=== PATIENT | female | born 1950 | race Caucasian/White ===

== ENCOUNTER 2017-07-25 07:27 | Emergency (ER) | payer MEDICARE, OTHER ==
[2017-07-25] MEDS ORDERED: Lidocaine 1% (PF) 30 ML VIAL ONE (08:15)
--- NOTE | 2017-07-25 08:43 | RAD ---
RIGHT WRIST 3 VIEWS: Date: 07/25/17 HISTORY: Injury. Pain. Fall. FINDINGS: Diffuse bone demineralization. Impacted and slightly comminuted distal radius fracture. There is dors al angulation. Fracture lucency extends to the articular surface. Ulnar styloid fracture is identifie d. With regard to the carpal bones, there is mild widening of the scapholunate joint space. Fractures ar e not appreciated. IMPRESSION: Post-traumatic changes as above. POS: [facility]
--- NOTE | 2017-07-25 10:25 | RAD ---
3 VIEWS RIGHT WRIST: Date: 07/25/17 HISTORY: Fracture and dislocation. COMPARISON: 07/25/17. FINDINGS: Interval placement of a fiberglass splint. Evaluation for fine bony detail is limited. Fractures are redemonstrated. There is still evidence of mild dorsal angulation. IMPRESSION: Interval reduction. Persistent posterior dislocation. POS: [facility]
== END 2017-07-25 09:55 | disposition home or self-care (01) ==
LOC: ERS 07:27
DX: S52.501A Unspecified fracture of the lower end of right radius, initial encounter for closed fracture (principal); S52.611A Displaced fracture of right ulna styloid process, initial encounter for closed fracture; J44.9 Chronic obstructive pulmonary disease, unspecified; M41.9 Scoliosis, unspecified; W01.0XXA Fall on same level from slipping, tripping and stumbling without subsequent striking against object, initial encounter; Y92.000 Kitchen of unspecified non-institutional (private) residence as the place of occurrence of the external cause
CPT/HCPCS: 25605; J2001

== ENCOUNTER 2017-07-29 14:37 | Outpatient (CLI) | payer MEDICARE ==
[2017-07-29 16:21] LABS: #Eosinphils 0.1 thou/uL (0.0-0.7); #Lymphocytes 1.4 thou/uL (1.20-3.40); #Monocytes 0.5 thou/uL (0.11-0.59); %Basophils 0.8 % (0.0-1.0); %Eosinophils 2.6 % (0.0-10.0); %Lymphocytes 27.4 % (21.0-51.0); %Monocytes 10.3 % (0.0-10.0); Hematocrit 39.5 % (36.0-47.0); Mean Platelet Volume 7.9 fL (7.4-10.4); Red Blood Cell (RBC) Count 4.28 mill/uL (4.20-5.40); White Blood Cell (WBC) Count 5.1 thou/uL (4.8-10.8)
[2017-07-29 16:41] LABS: Anion Gap 13 mmol/L (10-20); BUN (Urea Nitrogen) 23 mg/dL (9.8-20.1); Calc. Creatinine Clearance 0 mL/min (70-130); Calcium 9.3 mg/dL (7.8-10.44); Carbon Dioxide 27 mmol/L (23-31); Chloride 105 mmol/L (98-107); Estimated GFR-MDRD 68
--- NOTE | 2017-07-29 16:52 | RAD ---
TWO VIEWS CHEST: History: Pre-operative radiograph. Comparison: None. FINDINGS: Two views of the chest shows a normal sized cardiomediastinal silhouette. There is a moderate hiatal hernia. Increased interstitial markings are present. There is no evidence of consolidation, mass or p leural effusion. IMPRESSION: 1. No evidence of acute cardiopulmonary disease. 2. Hiatal hernia. POS: [facility]
== END 2017-07-29 14:38 | disposition home or self-care (01) ==
LOC: LABBT 14:37
PROVIDERS: ATTEND Orthopaedic Surgery
DX: Z01.818 Encounter for other preprocedural examination (principal); S52.571A Other intraarticular fracture of lower end of right radius, initial encounter for closed fracture; K44.9 Diaphragmatic hernia without obstruction or gangrene
CPT/HCPCS: 71020; 80048; 85025; 93005; 93010

== ENCOUNTER 2017-07-30 08:55 | Day surgery (SDC) | payer MEDICARE ==
[2017-07-29 14:46] VITALS: BMI 30.2
[2017-07-30] MEDS ORDERED: CEFAZOLIN/Water 2 GM/20 ML SYRINGE ONE (09:36)
[2017-07-30] MEDS ORDERED: Midazolam HCl 2 mg/2 ml Vial ONE (10:28)
[2017-07-30] MEDS ORDERED: Fentanyl 100 MCG/2 ML VIAL ONE (10:28)
[2017-07-30] MEDS ORDERED: Propofol 500 MG/50 ML VIAL ONE (10:31)
--- NOTE | 2017-07-30 13:42 | RAD ---
THREE INTRAOPERATIVE FLUOROSCOPIC IMAGES OF THE RIGHT WRIST: DATE: 07/30/17. HISTORY: Fracture repair right wrist. COMPARISON: 07/25/17. FINDINGS: There is a volar plate and multiple screws transfixing the previously noted distal right radial metap hyseal fracture. There is improvement in alignment of the fracture fragments. IMPRESSION: Internal fixation right distal radial metaphyseal fracture. POS: [facility]
[2017-07-30] MEDS ORDERED: Bupivacaine HCl 0.5%/Epinephrine 1:200,000/PF 30 ml Vial ONE (13:47)
--- NOTE | 2017-07-30 14:18 | OP ---
DATE OF PROCEDURE: 07/30/2017 PREOPERATIVE DIAGNOSIS: Right distal radius metaphyseal comminuted intra-articular fracture. POSTOPERATIVE DIAGNOSIS: Right distal radius metaphyseal comminuted intraarticular fracture. OPERATIVE PROCEDURE: Open reduction internal fixation right distal radius metaphyseal fracture. SURGEON: Rob Melo M.D. [employer]: Arturo Frye PA-C. ANESTHESIA: TIVA augmented with right indwelling peripheral infraclavicular nerve block. COMPONENTS USED: Synthes two column volar plate 3-hole for metaphyseal fractures. TOURNIQUET TIME: Twenty minutes at 250 mmHg. FINDINGS: Metaphyseal distal radius fracture as noted on plain radiographs. DRAINS: None. SPECIMENS: None. COMPLICATIONS: None. COUNTS: Correct. INDICATIONS FOR SURGERY: Naheed is a 66-year-old white female who fell on an outstretched right forear m approximately 5-7 days prior to presentation. Date of injury was 07/25/2017. She was seen in the emergency room, splinted, and sent to our clinic where she was scheduled for open reduction internal fixation. PROCEDURE IN DETAIL: After informed consent was obtained in the preoperative holding area, a periphe ral block was placed by Anesthesia. The patient was taken to the operating suite where she did recei ve preoperative antibiotics. A well-padded tourniquet was placed over the right proximal brachium. The right upper extremity was then prepped and draped in the usual sterile fashion. Prior to exsangu ination, a timeout was called and all members of the surgical team agreed on site, surgeon, and patie nt. Once this was completed, incision was made directly over the fracture in longitudinal fashion on the volar aspect of the distal radius. Subcutaneous layers were undermined with Bovie electrocauter y and blunt dissection. The flexure carpi radialis tendon was encountered and was retracted medially . The pronator muscle was encountered and incised sharply down to the bone. It was reflected with p eriosteal elevator. The fracture was identified and cleaned out with curettage. Preliminary reducti on was performed with good reduction noted. Fluoroscopy was then brought into the field and we sized for a 3-hole plate and this was pinned provisionally. The first metadiaphyseal screw was placed. T wo planes revealed near anatomic reduction. We then placed our distal locking screws and finished th e metadiaphyseal cortical screws. This was imaged in 2 planes. There were no screws noted to be alexa sarai in the joint. Near anatomic reduction was achieved in AP and lateral planes. The entire wound w as copiously irrigated with normal saline. Primary closure was accomplished with interrupted 2-0 Marcus ryl in subcutaneous layer and 3-0 nylon in a horizontal mattress was then used to reapproximate the s kin. A sterile dressing was applied. This was overwrapped with a volar splint. The procedure was t erminated without any complications. The patient was transferred to hospital bed and returned to day stay in stable condition for discharge home.
[2017-07-30] MEDS ORDERED: Propofol 200 MG/20 ML VIAL ONE (15:08)
== END 2017-07-30 13:05 | disposition home or self-care (01) ==
LOC: SDC 08:55
PROVIDERS: ATTEND Orthopaedic Surgery
PROC: 0PSH04Z Reposition Right Radius with Internal Fixation Device, Open Approach (ICD-10-PCS; principal; 2017-07-30)
DX: S52.571A Other intraarticular fracture of lower end of right radius, initial encounter for closed fracture (principal); G47.30 Sleep apnea, unspecified; M54.5 Low back pain; G89.29 Other chronic pain; J45.909 Unspecified asthma, uncomplicated; F32.9 Major depressive disorder, single episode, unspecified; M80.831A Other osteoporosis with current pathological fracture, right forearm, initial encounter for fracture; M41.9 Scoliosis, unspecified; J44.9 Chronic obstructive pulmonary disease, unspecified; Z79.52 Long term (current) use of systemic steroids; Z79.899 Other long term (current) drug therapy; Z88.1 Allergy status to other antibiotic agents; Z88.2 Allergy status to sulfonamides; Z88.8 Allergy status to other drugs, medicaments and biological substances; Z87.442 Personal history of urinary calculi
CPT/HCPCS: 25608; 73110; 76000; C1713 ×2; J0670; J2250; J2704; J3010

== ENCOUNTER 2017-12-14 14:37 | Outpatient (CLI) | payer MEDICARE | END 2017-12-14 14:38 | disposition home or self-care (01) | LOC: BICRAD 14:37 | PROVIDERS: ATTEND Family Medicine | DX: R05 Cough (principal); K44.9 Diaphragmatic hernia without obstruction or gangrene | CPT/HCPCS: 71046 ==

== ENCOUNTER 2019-08-26 09:06 | Outpatient (CLI) | payer MEDICARE ==
--- NOTE | 2019-08-26 11:08 | RAD ---
PA AND LATERAL CHEST: HISTORY: Acute bronchitis. Cough. COMPARISON: 07/29/2017 FINDINGS: The heart size is mildly enlarged. A moderate sized hiatal hernia is again seen. The lungs are well e xpanded with chronic interstitial changes. No lobar consolidation, pneumothoraces or pleural effusion s are seen. IMPRESSION: 1. Cardiomegaly. 2. Hiatal hernia. POS: [facility]
== END 2019-08-26 09:07 | disposition home or self-care (01) ==
LOC: BICRAD 09:06
PROVIDERS: ATTEND Family Medicine
DX: J20.9 Acute bronchitis, unspecified (principal); I51.7 Cardiomegaly; K44.9 Diaphragmatic hernia without obstruction or gangrene
CPT/HCPCS: 71046

== ENCOUNTER 2020-01-24 10:14 | Outpatient (CLI) | payer MEDICARE ==
[~2020-01-24 10:14] MED LIST: Iopamidol 370 76% 100 ML VIAL ONE
[2020-01-24 11:04] LABS: Estimated GFR-MDRD - POC Greater than 90
--- NOTE | 2020-01-24 19:38 | CT ---
CT OF THE ABDOMEN AND PELVIS WITH AND WITHOUT IV CONTRAST UTILIZING LIVER MASS PROTOCOL 01/24/20 INDICATIONS: History of blood in the stool with prior colon polyps and colon malignancy. TECHNIQUE: Multiple CT images were obtained in the abdomen and pelvis utilizing liver mass protocol. Pre and po stcontrast images were obtained of the abdomen and pelvis. Axial, coronal and sagittal reformat image s were constructed from the raw data. Comparisons are made with a CT of the abdomen and pelvis withou t contrast dated 10/09/08 from [facility]. FINDINGS: Again seen is a moderate sized hiatal hernia. There is mild left basilar atelectasis. No focal hepatic lesion is evident. The gallbladder is mildly distended. There is stable large afia calcification within the pancreatic body. 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 There are no w peripheral areas of calcifications seen adjacent to lesion which may reflect sequela of prior inter rani treatment. No hydronephrosis is evident. Adrenal glands and spleen appear within normal limits. N o lymphadenopathy is evident within the abdomen. Calcification seen adjacent to the IVC is similar a ppearing. Majority of the colon is largely decompressed limiting evaluation for mass lesion. The pancreas is pa rtially decompressed. Reproductive structures are unremarkable by CT. There is prominent levoscoliosi s of the lumbar spine with scattered degenerative and osteoarthritic change. No focal osseous lesion is evident. There are injection granulomata overlying the right gluteal region. IMPRESSION: 1. No evidence to suggest regional or metastatic disease within the abdomen or pelvis. 2. 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 The lesion is smaller in size as above. 3. Stable calcifications involving the pancreatic body as well as a small calcification anterior to the IVC may reflect dystrophic calcification from prior inflammatory etiology. 4. Other chronic findings as above. POS: [facility]
== END 2020-01-24 10:15 | disposition home or self-care (01) ==
LOC: CT 10:14
PROVIDERS: ATTEND Internal Medicine Gastroenterology
DX: C18.9 Malignant neoplasm of colon, unspecified (principal); K63.89 Other specified diseases of intestine; K44.9 Diaphragmatic hernia without obstruction or gangrene; M41.9 Scoliosis, unspecified; K86.89 Other specified diseases of pancreas; M47.816 Spondylosis without myelopathy or radiculopathy, lumbar region; K82.8 Other specified diseases of gallbladder; J98.11 Atelectasis
CPT/HCPCS: 74178; 82565; Q9967

== ENCOUNTER 2020-02-03 07:59 | Outpatient (CLI) | payer MEDICARE, OTHER ==
[2020-02-03 14:28] LABS: Hemoglobin A1c 5.7 % (4.0-6.0)
[2020-02-03 14:31] LABS: Anion Gap 15 mmol/L (10-20); BUN (Urea Nitrogen) 10 mg/dL (9.8-20.1); Calc. Creatinine Clearance 0 mL/min (70-130); Calcium 9.4 mg/dL (7.8-10.44); Carbon Dioxide 24 mmol/L (23-31); Chloride 108 mmol/L (98-107); Estimated GFR-MDRD 82; Glucose 98 mg/dL (80-115); Potassium 3.6 mmol/L (3.5-5.1); Sodium 143 mmol/L (136-145)
[2020-02-03 14:47] LABS: Band 3 % (5-11); Elliptocytes SLIGHT = 2-5 cells (100X) (0-1/hpf); Eosinophils 3 % (0-10); Hemoglobin 8.8 g/dL (12.0-16.0); Hypochromia SLIGHT = 6-15 cells (100X) (0-5/hpf); Large Platelets SLIGHT; Lymphocytes 23 % (21-51); MDiff Complete? YES; Mean Corpuscular HGB CONC 30.2 g/dL (32.0-36.0); Mean Corpuscular Hemoglobin 22.7 pg (27.0-31.0); Mean Platelet Volume 11.5 fL (7.4-10.4); Microcytosis SLIGHT = 6-15 cells (100X) (0-5/hpf); Monocytes 15 % (0-10); Neutrophil 51 % (42-75); Ovalocytes SLIGHT = 2-5 cells (100X) (0-1/hpf); Platelet Count 260 thou/uL (130-400); Platelet Morphology Comment Appears Adequate; Polychromasia SLIGHT = 2-3 cells (100X) (0-2/hpf); RBC Distribution Width 17.5 % (11.5-14.5); Reactive Lymphocytes 2 % (0-10); Red Blood Cell (RBC) Count 3.89 mill/uL (4.20-5.40); Schistocytes SLIGHT = 2-5 cells (100X) (0-1/hpf); Target Cells SLIGHT = 2-5 cells (100X) (0-1/hpf); Tear Drops SLIGHT = 2-5 cells (100X) (0-1/hpf); White Blood Cell (WBC) Count 4.5 thou/uL (4.8-10.8)
[2020-02-04 11:33] LABS: SARS-CoV-2 MS2 Positive; SARS-CoV-2 N Gene Negative; SARS-CoV-2 S Gene Negative; SARS-CoV-2 orf1ab Negative
== END 2020-02-03 08:00 | disposition home or self-care (01) ==
LOC: LABBT 07:59
PROVIDERS: ATTEND Surgery
DX: Z01.812 Encounter for preprocedural laboratory examination (principal); Z11.59 Encounter for screening for other viral diseases; C18.9 Malignant neoplasm of colon, unspecified
CPT/HCPCS: 80048; 83036; 85025; U0003; 87635

== ENCOUNTER 2020-02-03 15:15 | Inpatient (IN) | payer MEDICARE ==
[2020-02-07] MEDS ORDERED: Fentanyl 250 MCG/5 ML VIAL ONE (06:50)
[2020-02-07] MEDS ORDERED: Midazolam HCl 2 mg/2 ml Vial ONE (07:21)
[2020-02-07] MEDS ORDERED: Fentanyl 100 MCG/2 ML VIAL ONE ×2 (07:21→10:08)
[2020-02-07] MEDS ORDERED: SUGAMMADEX SODIUM 200 MG/2 ML VIAL ONE (09:36)
[2020-02-07] MEDS ORDERED: Promethazine HCl 25 MG/ML VIAL SLOW IVP PRN (09:52)
[2020-02-07] MEDS ORDERED: Promethazine HCl 25 MG/ML VIAL IM PRN ×3 (09:52→11:46)
[2020-02-07] MEDS ORDERED: Ondansetron HCl/PF 4 MG/2 ML Vial IVP PRN (09:52)
[2020-02-07] MEDS ORDERED: Zolpidem Tartrate 5 MG TAB PO PRN (10:12)
[2020-02-07] MEDS ORDERED: fentaNYL Citrate/PF 2,000 MCG in Sodium Chloride 0.9% 60 ML IV PRN (10:12)
[2020-02-07] MEDS ORDERED: diphenhydrAMINE 25 MG CAP PO PRN (10:12)
[2020-02-07] MEDS ORDERED: diphenhydrAMINE 50 MG/ML VIAL IM PRN (10:12)
[2020-02-07] MEDS ORDERED: Naloxone HCl 0.4 mg/ml Vial IV PRN (10:12)
[2020-02-07] MEDS ORDERED: Ondansetron PF 4 MG/2 ML Vial IVP PRN ×2 (10:12→11:46)
[2020-02-07] MEDS ORDERED: diphenhydrAMINE 50 MG/ML VIAL IVP PRN (10:12)
[2020-02-07] MEDS ORDERED: Communication Order-Pharmacy FS PRN (10:15)
[2020-02-07] MEDS ORDERED: Bupivacaine HCl 0.5%/Epinephrine 1:200,000/PF 30 ml Vial ONE (10:20)
[2020-02-07] MEDS ORDERED: Glycopyrrolate 0.2 MG/ML 5 ML SYRINGE ONE (10:20)
[2020-02-07] MEDS ORDERED: Lidocaine 1% PF 5 ML VIAL ONE (10:20)
[2020-02-07] MEDS ORDERED: PROPOFOL 200 MG/20 ML VIAL ONE (10:20)
[2020-02-07] MEDS ORDERED: PHENYLEPHRINE-NS 100 MCG/ML 10 ML SYRINGE ONE (10:20)
[2020-02-07] MEDS ORDERED: Rocuronium Bromide 10 MG/ML (10ML VIAL) ONE (10:20)
[2020-02-07] MEDS ORDERED: Ondansetron PF 4 MG/2 ML Vial ONE (10:20)
[2020-02-07] MEDS: Sodium Chloride 0.9% 1,000 ML IV SCH (11:46)
[2020-02-07] MEDS ORDERED: hydrALAZINE 20 MG/ML VIAL SLOW IVP PRN (11:46)
--- NOTE | 2020-02-07 14:28 | OP ---
DATE OF PROCEDURE: 02/07/2020 PREOPERATIVE DIAGNOSIS: Ascending colon cancer. POSTOPERATIVE DIAGNOSIS: Ascending colon cancer. PROCEDURE PERFORMED: Hand-assist right colectomy. ANESTHESIA: General. ESTIMATED BLOOD LOSS: 100 mL. COMPLICATIONS: None. FINDINGS: There is rather an enlarged lymph node at the base of the ileocolic vessels. This was abutting the duodenum, although not invasive into the wall of the duodenum. DESCRIPTION OF PROCEDURE: The patient was taken to the operating room and laid supine on the operating room table. After general anesthetic was obtained, a Andrew was placed. The abdomen was prepped and draped in a sterile fashion. A left subcostal 5-mm Optiview trocar was placed in the usual fashion. High-flow pneumoperitoneum was obtained. Left abdominal 5-mm port as well as a suprapubic 5-mm port were placed under direct visualization. The hand-assist port was placed above the umbilicus. The right colon was mobilized along the white line of Toldt. The base of the ileocolic vessels were skeletonized, revealing a rather large lymph node. The hepatic flexure was mobilized in the usual fashion. This lymph node appeared to abut the 3rd portion of the duodenum. The hand-assist port was taken off. GINO-75 stapler was fired across the terminal ileum. A reload was fired across the proximal transverse colon. Most of the mesentery was taken using the LigaSure. Care was taken to avoid injury to the duodenum. Through this open hand-assist port, meticulous dissection was performed at the base of the ileocolic vessels. The ileocolic vessels were taken using Fanta clamp and silk ties. The enlarged lymph node was very carefully dissected off the side of the 3rd portion of the duodenum. Thus, the specimen was sent to Pathology. In this area of the duodenum, interrupted silk sutures were used to oversew the serosa, even though no full-thickness injury was there. There was no bleeding in the abdomen. An isoperistaltic anastomosis was performed using GINO 75 stapler. The common enterotomy was closed using 2-0 Vicryl in 2 layers. A crotch stitch was placed using silk. The specimen was placed back into the abdominal cavity. The abdomen was irrigated. There was no ongoing bleeding. The right ureter had been found and excluded from the dissection. All port sites were infiltrated using local and removed. The hand-assist port fascia was closed using PDS from the top and the bottom and tied in the middle. Subcutaneous tissues were irrigated and closed using 3-0 Vicryl, 4-0 Monocryl, and Dermabond. The patient was sent to Recovery in stable condition. All instrument counts, needle counts, and lap counts were correct. Job ID: [id number]
[2020-02-07 14:32] VITALS: BMI 33.8
[2020-02-07] MEDS ORDERED: ALPRAZolam 0.5 MG TAB PO SCH (15:00)
[2020-02-07] MEDS: cefOXitin Sodium 1 GM in Sodium Chloride 0.9% 100 ML IVPB SCH ×2 (16:24→23:42)
[2020-02-07] MEDS: Enoxaparin Sodium 40 MG/0.4 ML SYRINGE SC SCH (20:37)
[2020-02-07] MEDS: Famotidine/PF 20 mg/2ml Vial SLOW IVP SCH (20:37)
[2020-02-07] MEDS ORDERED: Famotidine 20 MG TAB PO SCH (21:00)
[2020-02-08] MEDS: Sodium Chloride 0.9% 1,000 ML IV SCH (05:40)
[2020-02-08 06:26] LABS: Anion Gap 10 mmol/L (10-20); BUN (Urea Nitrogen) 6 mg/dL (9.8-20.1); Calc. Creatinine Clearance 105 mL/min (70-130); Calcium 8.6 mg/dL (7.8-10.44); Carbon Dioxide 25 mmol/L (23-31); Chloride 104 mmol/L (98-107); Estimated GFR-MDRD 89; Glucose 102 mg/dL (80-115); Potassium 3.3 mmol/L (3.5-5.1); Sodium 136 mmol/L (136-145)
[2020-02-08 08:33] LABS: Band 5 % (5-11); Hemoglobin 9.1 g/dL (12.0-16.0); Hypochromia MODERATE=16-30 cells (100X) (0-5/hpf); Lymphocytes 5 % (21-51); MDiff Complete? YES; Mean Corpuscular HGB CONC 30.8 g/dL (32.0-36.0); Mean Corpuscular Hemoglobin 22.8 pg (27.0-31.0); Mean Corpuscular Volume 73.9 fL (78.0-98.0); Mean Platelet Volume 11.5 fL (7.4-10.4); Microcytosis SLIGHT = 6-15 cells (100X) (0-5/hpf); Monocytes 15 % (0-10); Neutrophil 75 % (42-75); Ovalocytes SLIGHT = 2-5 cells (100X) (0-1/hpf); Platelet Count 258 thou/uL (130-400); Platelet Morphology Comment Appears Adequate; Polychromasia SLIGHT = 2-3 cells (100X) (0-2/hpf); RBC Distribution Width 17.4 % (11.5-14.5); Red Blood Cell (RBC) Count 3.97 mill/uL (4.20-5.40); White Blood Cell (WBC) Count 8.1 thou/uL (4.8-10.8)
[2020-02-08] MEDS: predniSONE 5 MG TAB PO SCH (08:47)
[2020-02-08] MEDS: Famotidine/PF 20 mg/2ml Vial SLOW IVP SCH ×2 (08:47→20:09)
[2020-02-08] MEDS ORDERED: Acetaminophen 325 MG TAB PO PRN (09:38)
[2020-02-08] MEDS ORDERED: Morphine 4 MG/ML VIAL SLOW IVP PRN (15:44)
[2020-02-08] MEDS ORDERED: Morphine 2 MG/ML SYRINGE SLOW IVP PRN (15:44)
[2020-02-08] MEDS ORDERED: traMADol HCl 50 MG TAB PO PRN ×2 (15:45)
--- NOTE | 2020-02-08 16:39 | PRG ---
DATE OF SERVICE: 02/08/2020 SUBJECTIVE: Ms. Gilliam is doing well. She is ambulatory. She has no nausea. OBJECTIVE: VITAL SIGNS: She is afebrile. Vital signs are stable. ABDOMEN: Soft, nontender. Wounds are healing well. ASSESSMENT: Postop day #1 right colectomy. PLAN: Full liquid diet. Hep-Lock, IV fluids. Potentially home tomorrow. Job ID: [id number]
[2020-02-08] MEDS: HYDROcodone/Acetaminophen 7.5/325 mg Tablet PO PRN (17:29)
[2020-02-08] MEDS: Enoxaparin Sodium 40 MG/0.4 ML SYRINGE SC SCH (20:09)
[2020-02-09] MEDS: HYDROcodone/Acetaminophen 7.5/325 mg Tablet PO PRN ×2 (01:53→08:14)
[2020-02-09] MEDS: predniSONE 5 MG TAB PO SCH (08:13)
[2020-02-09] MEDS: Famotidine/PF 20 mg/2ml Vial SLOW IVP SCH (08:14)
[2020-02-09 10:57] VITALS: BP 120/68; TEMP 98.1
--- NOTE | 2020-02-10 13:43 | DIS ---
DATE OF ADMISSION: 02/07/2020 DATE OF DISCHARGE: 02/09/2020 ADMISSION DIAGNOSIS: Ascending colon mass. DISCHARGE DIAGNOSIS: Ascending colon mass. PROCEDURE PERFORMED: Laparoscopic hand-assisted right colectomy by Conrad without complication. CONDITION ON DISCHARGE: Improved. STAFF: Bang Martines MD HOSPITAL COURSE: On postop day #1, the patient is ambulatory on a clear liquid diet. Her diet is advanced to full liquids. On postop day #2, her pain is controlled. Her vital signs are stable. She has been passing flatus. She tolerated the full liquids. Has no nausea. She is discharged home. Prescriptions for Zofran sent to her pharmacy. She will use her normal outpatient pain medicine for pain. She will follow up with me in the office in 2 weeks. Pathology pending at the time of this dictation. Job ID: [id number]
== END 2020-02-09 13:00 | disposition home or self-care (01) | DRG 331 ==
LOC: SURG A 02-07 06:15
PROVIDERS: ADMIT Surgery; ATTEND Surgery
PROC: 0DBF4ZZ Excision of Right Large Intestine, Percutaneous Endoscopic Approach (ICD-10-PCS; principal; 2020-02-07)
DX: C18.2 Malignant neoplasm of ascending colon (principal); G47.30 Sleep apnea, unspecified; F32.9 Major depressive disorder, single episode, unspecified; M41.9 Scoliosis, unspecified; J44.9 Chronic obstructive pulmonary disease, unspecified; Z88.1 Allergy status to other antibiotic agents; Z88.2 Allergy status to sulfonamides; Z88.5 Allergy status to narcotic agent; Z88.8 Allergy status to other drugs, medicaments and biological substances
CPT/HCPCS: 36415; 36416; 80048; 85025; 86850; 86900; 86901; 88309; 88311; 88313; J0670; J0694; J1650; J2001; J2250; J2405; J2704; J3010; J3490; J7512; S0028

== ENCOUNTER 2020-03-07 06:27 | Outpatient (CLI) | payer MEDICARE, OTHER ==
[2020-03-08 14:38] LABS: SARS-CoV-2 MS2 Positive; SARS-CoV-2 N Gene Negative; SARS-CoV-2 S Gene Negative; SARS-CoV-2 orf1ab Negative
== END 2020-03-07 06:28 | disposition home or self-care (01) ==
LOC: LABBT 06:27
PROVIDERS: ATTEND Surgery
DX: Z01.812 Encounter for preprocedural laboratory examination (principal); Z11.59 Encounter for screening for other viral diseases; C18.9 Malignant neoplasm of colon, unspecified
CPT/HCPCS: 87635; U0003

== ENCOUNTER 2020-03-12 06:17 | Day surgery (SDC) | payer MEDICARE, OTHER ==
[2020-03-06 11:30] VITALS: BMI 31.1
[2020-03-12] MEDS ORDERED: Lidocaine 1% w/Epinephrine 1:100K 20 ML VIAL ONE (06:47)
[2020-03-12] MEDS ORDERED: Bupivacaine 0.25% HCL 30 ML VIAL ONE (06:47)
[2020-03-12] MEDS ORDERED: Ketamine 50 MG/ML (10ML VIAL) ONE (07:23)
[2020-03-12] MEDS ORDERED: Propofol 500 MG/50 ML VIAL ONE (07:23)
[2020-03-12] MEDS ORDERED: Midazolam HCl 2 mg/2 ml Vial ONE (07:23)
[2020-03-12] MEDS ORDERED: Fentanyl 100 MCG/2 ML VIAL ONE (07:23)
--- NOTE | 2020-03-12 09:16 | RAD ---
XR Chest 1 View Portable HISTORY: Mediport placement, colon cancer COMPARISON: None FINDINGS: The heart size is normal. The aorta is tortuous. There is a right internal jugular Port-A-C ath with tip in the projection of the SVC. The lungs are well expanded without focal areas of consolidation, pneumothorax or pleural effusions. IMPRESSION: No radiographic evidence of acute cardiopulmonary process.
--- NOTE | 2020-03-12 16:05 | OP ---
DATE OF PROCEDURE: 03/12/2020 PREOPERATIVE DIAGNOSIS: Colon cancer. POSTOPERATIVE DIAGNOSIS: Colon cancer. PROCEDURE: Tunneled central line subcutaneous port (MediPort). ANESTHESIA: TIVA and local. ESTIMATED BLOOD LOSS: Minimal. COMPLICATIONS: None. SPECIMENS: None. FINDINGS: Tip of the catheter was at the atriocaval junction. DESCRIPTION OF PROCEDURE: The patient was taken to the operating room and laid supine on the operating room table. After sedation was obtained, bilateral neck and chest were prepped and draped in a sterile fashion. Local anesthetic infiltrated to the right internal jugular vein. The internal jugular vein was cannulated using a 22-gauge Finder needle followed by Seldinger needle. Wire was passed into the superior vena cava under fluoro guidance. The dilator and wire were removed and the end of the catheter was threaded into the sheath and the sheath was peeled away. The tip of the catheter was at the atriocaval junction. The MediPort tubing had been tunneled from an incision made just below the right clavicle and a subcutaneous pocket made below the lower incision. The tubing was connected to the MediPort. The MediPort was sewn to the chest wall in a subcutaneous pocket using Prolene. The MediPort flushes and draws blood without difficulty, flushed with a Hepflush. The wounds were irrigated and closed using 3-0 and 4-0 Monocryl and Dermabond. The MediPort was accessed using Close needle and left accessed due to postoperative need for chemotherapy. The super glue was used on the skin. The patient was sent to Recovery in stable condition. All instrument counts, needle counts, and lap counts were correct. Job ID: [id number]
== END 2020-03-12 09:43 | disposition home or self-care (01) ==
LOC: SDC 06:17
PROVIDERS: ATTEND Surgery
PROC: 0JH60WZ Insertion of Totally Implantable Vascular Access Device into Chest Subcutaneous Tissue and Fascia, Open Approach (ICD-10-PCS; principal; 2020-03-12)
PROC: 02HV33Z Insertion of Infusion Device into Superior Vena Cava, Percutaneous Approach (ICD-10-PCS; 2020-03-12)
PROC: B518ZZA Fluoroscopy of Superior Vena Cava, Guidance (ICD-10-PCS; 2020-03-12)
DX: C18.2 Malignant neoplasm of ascending colon (principal); G47.30 Sleep apnea, unspecified; F41.0 Panic disorder [episodic paroxysmal anxiety]; G89.29 Other chronic pain; M54.5 Low back pain; I38 Endocarditis, valve unspecified; J45.909 Unspecified asthma, uncomplicated; F32.9 Major depressive disorder, single episode, unspecified; M41.9 Scoliosis, unspecified; M81.0 Age-related osteoporosis without current pathological fracture; J44.9 Chronic obstructive pulmonary disease, unspecified; Z79.52 Long term (current) use of systemic steroids; Z79.899 Other long term (current) drug therapy; Z88.1 Allergy status to other antibiotic agents; Z88.2 Allergy status to sulfonamides; Z88.5 Allergy status to narcotic agent; Z88.8 Allergy status to other drugs, medicaments and biological substances
CPT/HCPCS: 36561; 71045; C1788; J0690; J1642; J2250; J2704; J3010; S0020

== ENCOUNTER 2021-02-07 08:07 | Outpatient (CLI) | payer MEDICARE, OTHER | END 2021-02-07 08:08 | disposition home or self-care (01) | LOC: PET 08:07 | PROVIDERS: ATTEND Internal Medicine Hematology & Oncology | DX: C18.2 Malignant neoplasm of ascending colon (principal); C38.3 Malignant neoplasm of mediastinum, part unspecified; R16.0 Hepatomegaly, not elsewhere classified | CPT/HCPCS: 78815; A9552 ==

== ENCOUNTER 2021-03-27 10:22 | Outpatient (CLI) | payer MEDICARE, OTHER | END 2021-03-27 10:23 | disposition home or self-care (01) | LOC: BICRAD 10:22 | PROVIDERS: ATTEND Specialist | DX: J42 Unspecified chronic bronchitis (principal); R05 Cough | CPT/HCPCS: 71046 ==

== ENCOUNTER 2021-08-04 13:16 | Emergency (ER) | payer OTHER, MEDICARE | END 2021-08-04 14:30 | disposition home or self-care (01) | LOC: ERS 13:16 | DX: S00.03XA Contusion of scalp, initial encounter (principal); J44.9 Chronic obstructive pulmonary disease, unspecified; Z79.52 Long term (current) use of systemic steroids; Z79.899 Other long term (current) drug therapy; W01.0XXA Fall on same level from slipping, tripping and stumbling without subsequent striking against object, initial encounter | CPT/HCPCS: 70450; 72125 ==

== ENCOUNTER 2023-06-09 10:17 | Outpatient (CLI) | payer MEDICARE, OTHER | END 2023-06-09 10:18 | disposition home or self-care (01) | LOC: BICMAMMO 10:17 | PROVIDERS: ATTEND Specialist | DX: Z12.31 Encounter for screening mammogram for malignant neoplasm of breast (principal); Z85.038 Personal history of other malignant neoplasm of large intestine | CPT/HCPCS: 77063; 77067 ==

== ENCOUNTER 2023-08-07 08:16 | Emergency (ER) | payer MEDICARE, OTHER | END 2023-08-07 09:31 | disposition home or self-care (01) | LOC: ERS 08:16 | DX: H10.13 Acute atopic conjunctivitis, bilateral (principal); J44.9 Chronic obstructive pulmonary disease, unspecified | CPT/HCPCS: 99282 ==